=== PATIENT | female | born 2000 | race Caucasian/White ===

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

== ENCOUNTER 2020-01-13 20:55 | Emergency (ER) | payer MEDICAID ==
[~2020-01-13] VITALS: Ht 165.1 cm; Wt 59.4 kg
[2020-01-13 20:57] VITALS: Ht 165.1 cm; Wt 59.4 kg
[2020-01-13 22:08] VITALS: BP 105/69
== END 2020-01-13 22:08 | disposition home or self-care (01) ==
LOC: ED 20:55
DX: S39.012A Strain of muscle, fascia and tendon of lower back, initial encounter (principal); Z88.0 Allergy status to penicillin; X58.XXXA Exposure to other specified factors, initial encounter; Y93.89 Activity, other specified; Y92.89 Other specified places as the place of occurrence of the external cause; Y99.8 Other external cause status
CPT/HCPCS: J1885